=== PATIENT | female | born 1990 | race Caucasian/White ===

== ENCOUNTER 2017-02-23 11:31 | Emergency (ER) | payer OTHER ==
[~2017-02-23] VITALS: Ht 162.6 cm; Wt 104.3 kg
[~2017-02-23 11:31] MED LIST: CLIN300C2 PO; FOLIC ACID PO; LITH1TAB PO; LITH300C PO; MOTR200T44 PO; PERC5TAB6 PO; PRENTAB55 PO
[2017-02-23] MEDS ORDERED: BUPR300T34 PO (12:09)
[2017-02-23] MEDS ORDERED: PERCOCET 5MG/325MG TAB PO ONE (14:00)
[2017-02-23] MEDS ORDERED: KETOROLAC 60 MG/2 ML VIAL (J1885) IM ONE (14:00)
[2017-02-23] MEDS ORDERED: NAPR500T PO (14:06)
[2017-02-23] MEDS ORDERED: NORCOTAB PO (14:07)
[2017-02-23 14:26] VITALS: BP 138/75
== END 2017-02-23 14:43 | disposition home or self-care (01) ==
LOC: M ED 13:30
DX: S02.5XXA Fracture of tooth (traumatic), initial encounter for closed fracture (principal); X58.XXXA Exposure to other specified factors, initial encounter; Y92.9 Unspecified place or not applicable; Y93.9 Activity, unspecified; Y99.9 Unspecified external cause status; F41.9 Anxiety disorder, unspecified; F32.9 Major depressive disorder, single episode, unspecified; Z88.0 Allergy status to penicillin; Z91.030 Bee allergy status; Z88.8 Allergy status to other drugs, medicaments and biological substances; Z91.018 Allergy to other foods
CPT/HCPCS: 96372; 99282; J1885